=== PATIENT | female | born 1985 | race Two or more races ===

== ENCOUNTER 2016-05-08 07:50 | Observation (INO) | payer SELFPAY | END 2016-05-08 09:58 | disposition home or self-care (01) | DRG 782 | LOC: LDRP 07:50 | PROVIDERS: ADMIT Obstetrics & Gynecology; ATTEND Obstetrics & Gynecology | DX: O36.8130 Decreased fetal movements, third trimester, not applicable or unspecified (principal); Z3A.28 28 weeks gestation of pregnancy | CPT/HCPCS: 59025; 76815; 81002; G0378 ==

== ENCOUNTER 2022-08-21 21:20 | Emergency (ER) | payer MEDICAID | END 2022-08-21 23:04 | disposition left against medical advice (07) | LOC: ER 21:23 | DX: L02.31 Cutaneous abscess of buttock (principal); Z53.21 Procedure and treatment not carried out due to patient leaving prior to being seen by health care provider ==